=== PATIENT | female | born 1985 | race Caucasian/White ===

== ENCOUNTER 2018-08-31 18:35 | Inpatient (IN) | payer OTHER ==
[~2018-08-31] VITALS: Ht 177.8 cm; Wt 192.8 kg
[~2018-08-31 18:35] MED LIST: ASCO500T12 PO; CYCL5TAB PO
[2018-08-31 19:00] LABS: MEAN CORPUSCULAR HEMOGLOBIN 28.6 pg (27.0-34.8); MEAN CORPUSCULAR HGB CONC 33.6 g/dL (32.4-35.8); MEAN CORPUSCULAR VOLUME 85.3 fL (80-100); MEAN PLATELET VOLUME 9.1 fL (7.4-10.4); PLATELET COUNT 395 x10^3/uL (130-400); RED BLOOD COUNT 5.09 x10^6/uL (3.82-5.3); RED CELL DISTRIBUTION WIDTH 15.2 % (9.6-15.2)
[2018-08-31] MEDS ORDERED: ONDANSETRON ODT 4 MG ONE (19:00)
[2018-08-31] MEDS ORDERED: ONDANSETRON ODT 4 MG PO PRN (19:00)
[2018-08-31] MEDS ORDERED: HYDROmorphone 2 MG/ML, 1ML ONE (19:04)
[2018-08-31 19:11] LABS: ALBUMIN 3.5 g/dL (3.4-5.0); ANION GAP 8 mmol/L (5-15); CALCIUM 8.8 mg/dL (8.5-10.1); CHLORIDE 109 mmol/L (98-107); CREATININE 0.76 mg/dL (0.55-1.02)
[2018-08-31 19:12] LABS: MICROSCOPIC AUTO
[2018-08-31 19:13] LABS: CULTURE INDICATED? YES
[2018-08-31 19:22] LABS: MD YES
[2018-08-31 19:26] LABS: BAND#(MANUAL) 0.37 x10^3/uL; BANDS%(MANUAL) 2 % (0-7); BASOS#(MANUAL) 0.19 x10^3/uL (0-0.1); BASOS% (MANUAL) 1 % (0-1); EOS#(MANUAL) 0.37 x10^3/uL (0.0-0.4); EOS% (MANUAL) 2 % (1-7); METAMYELOCYTES# (MANUAL) 0.19 x10^3/uL (0-0); METAMYELOCYTES% (MANUAL) 1 % (0-1); MONOS#(MANUAL) 0.56 x10^3/uL (0.3-2.7); MONOS% (MANUAL) 3 % (2-9)
[2018-08-31 19:27] LABS: LYMPH#(MANUAL) 5.05 x10^3/uL (1-3.4); LYMPHS% (MANUAL) 27 % (22-44); SEGS% (MANUAL) 64 % (42-75)
[2018-08-31 19:28] LABS: <RBC MORPHOLOGY> NORMAL; TOXIC GRAN 1+
[2018-08-31 19:29] LABS: <PLATELET ESTIMATE> ADEQUATE; <PLT MORPHOLOGY> NORMAL PLT MORPH; PMNS WITH VACUOLES 1+
[2018-08-31] MEDS ORDERED: HYDROmorphone 1 MG/ML, 1ML IM ONE (19:30)
[2018-08-31] MEDS ORDERED: CEFTRIAXONE PMX 2GM/50ML 50 ML ONE (19:50)
[2018-08-31] MEDS ORDERED: CEFTRIAXONE 2 GM in SODIUM CHLORIDE 0.9% 50 ML IV SCH (20:00)
[2018-08-31] MEDS ORDERED: KETOROLAC 30 MG/1 ML IV PRN (20:30)
[2018-08-31] MEDS: NICOTINE 14MG/24 HR PATCH.TD24 TD SCH (20:30)
[2018-08-31] MEDS ORDERED: ZOLPIDEM 5MG TABLET PO PRN (20:30)
[2018-08-31] MEDS ORDERED: ACETAMINOPHEN 325 MG TABLET PO PRN (20:30)
[2018-08-31 20:39] VITALS: BP 133/91
[2018-08-31] MEDS: morphine SULFATE 10 MG/ML, 1ML IVPush PRN (21:55)
[2018-08-31] MEDS: SODIUM CHLORIDE 0.9% 1,000 ML IV SCH (21:58)
[2018-08-31] MEDS: ONDANSETRON 2MG/ML, 2ML IVPush PRN (23:22)
[2018-09-01 02:00] VITALS: BP 110/71
[2018-09-01] MEDS ORDERED: CEFTRIAXONE 2 GM in SODIUM CHLORIDE 0.9% 50 ML IV SCH (04:00)
[2018-09-01] MEDS: morphine SULFATE 10 MG/ML, 1ML IVPush PRN ×3 (04:30→12:01)
[2018-09-01 05:16] LABS: BASOPHILS # (AUTO) 0.05 x10^3/uL (0-0.1); BASOPHILS % (AUTO) 1 % (0-1); EOSINOPHILS # (AUTO) 0.26 x10^3/uL (0-0.4); EOSINOPHILS % (AUTO) 2 % (1-7); LYMPHOCYTES # (AUTO) 3.43 x10^3/uL (1-3.4); LYMPHOCYTES % (AUTO) 30 % (22-44); MD NO; MEAN CORPUSCULAR HEMOGLOBIN 28.1 pg (27.0-34.8); MEAN CORPUSCULAR HGB CONC 32.8 g/dL (32.4-35.8); MEAN CORPUSCULAR VOLUME 85.5 fL (80-100); MEAN PLATELET VOLUME 9.3 fL (7.4-10.4); MONOCYTES # (AUTO) 0.63 x10^3/uL (0.2-0.8); MONOCYTES % (AUTO) 6 % (2-9); NEUTROPHILS # (AUTO) 7.01 x10^3/uL (1.8-6.8); NEUTROPHILS % (AUTO) 62 % (42-75); PLATELET COUNT 282 x10^3/uL (130-400); RED BLOOD COUNT 4.44 x10^6/uL (3.82-5.3); RED CELL DISTRIBUTION WIDTH 15.1 % (9.6-15.2)
[2018-09-01 07:43] VITALS: BP 129/83
[2018-09-01] MEDS: SODIUM CHLORIDE 0.9% 1,000 ML IV SCH (08:00)
[2018-09-01] MEDS: NICOTINE 14MG/24 HR PATCH.TD24 TD SCH (08:33)
[2018-09-01] MEDS ORDERED: LEVO750T26 PO (11:38)
[2018-09-01] MEDS ORDERED: IBUP-1221 PO (11:38)
[2018-09-01] MEDS ORDERED: ONDANSETRON ODT 4 MG ONE (11:58)
[2018-09-01] MEDS: ONDANSETRON 2MG/ML, 2ML IVPush PRN (12:01)
== END 2018-09-01 12:46 | disposition home or self-care (01) | DRG 872 ==
LOC: ED 19:55 → EDIP 20:00 → 4WST 20:34 → 3NE 09-01 00:09 → DCLOUNGE 09-01 12:30
PROVIDERS: ADMIT Hospitalist; ATTEND Hospitalist
DX: A41.9 Sepsis, unspecified organism (principal); N10 Acute pyelonephritis; Z68.44 Body mass index [BMI] 60.0-69.9, adult; E66.01 Morbid (severe) obesity due to excess calories; F17.210 Nicotine dependence, cigarettes, uncomplicated; I10 Essential (primary) hypertension; Z87.440 Personal history of urinary (tract) infections
CPT/HCPCS: 36415; 80048; 81001; 82040; 83605; 84703; 85025; 87040; 87077; 87086; 87186; 90656; 96372; 96374; G0378; J0696; J1170; J1885; J2405; Q0162; J2270; J7030